=== PATIENT | female | born 2000 | race Caucasian/White ===

== ENCOUNTER 2021-04-28 15:08 | Emergency (ER) | payer OTHER ==
[~2021-04-28] VITALS: Ht 162.6 cm; Wt 83.9 kg
[~2021-04-28 15:08] MED LIST: NOHOMEMEDICATIONS; NORCO 5-325 TA1 EACH PO
[2021-04-28 15:38] LABS: URINE BILIRUBIN NEGATIVE (Negative); URINE BLOOD NEGATIVE (Negative); URINE CLARITY CLEAR; URINE COLOR YELLOW; URINE GLUCOSE-RANDOM NEGATIVE (Negative); URINE KETONES NEGATIVE (Negative); URINE LEUKOCYTES 2+ (Negative); URINE NITRITE NEGATIVE (Negative); URINE PROTEIN NEGATIVE (Negative); URINE UROBILINOGEN 0.2 E.U./dl (0.2-1.0)
[2021-04-28 15:40] LABS: ABSOLUTE EOSINOPHILS 0.1 thou/uL (0.0-0.7); ABSOLUTE LYMPHOCYTES 1.9 thou/uL (0.8-5.3); ABSOLUTE MONOCYTES 0.4 thou/uL (0.0-1.2); ABSOLUTE NEUTROPHILS 3.9 thou/uL (1.6-8.1); BASOPHILS 0.5 %; HEMATOCRIT 39.3 % (37.0-47.0); HEMOGLOBIN 12.8 gm/dL (12.0-15.0); LYMPHOCYTES 30.2 %; MCH 28.8 pg (26.0-34.0); MCHC 32.7 g/dL (28.0-37.0); MCV 88.2 fL (80.0-100.0); MPV 8.7 fl. (7.2-11.1); NUCLEATED RBCS 0 /100WBC; PLATELET COUNT* 255 thou/uL (150-400); POLYS 62.3 %; RBC 4.45 mil/uL (4.20-5.00); RDW-CV 13.5 % (10.5-14.5); WBC 6.3 thou/uL (4.0-11.0)
[2021-04-28 15:45] LABS: MUCUS None Seen strn/LPF (None Seen); SQUAMOUS >10 Many /LPF (0-3)
[2021-04-28 15:46] LABS: CASTS None Seen /LPF (None Seen)
[2021-04-28 15:47] LABS: CRYSTALS None Seen /LPF (None Seen); URINE RBC 0-2 Rare /HPF (0-2); URINE WBC 0-5 Rare /HPF (0-5)
[2021-04-28 15:48] LABS: CREATININE 0.7 mg/dL (0.6-1.3); POTASSIUM 3.8 mmol/L (3.5-5.1)
[2021-04-28 15:56] LABS: ALBUMIN 3.8 g/dL (3.4-5.0); TOTAL BILIRUBIN 0.4 mg/dL (<0.1-1.0); TOTAL PROTEIN 7.8 g/dL (6.4-8.2)
--- NOTE | 2021-04-28 16:06 | EKG ---
[place] [address] ELECTROCARDIOGRAM REPORT Name: JERMAIN JACKMAN Room: [facility].#: [id number] Admission: Attend Phys: Discharge: Date of : 89 Date of Service: 04/28/21 1534 Report #: [id number] THIS REPORT FOR: //name// [facility] ED Test Date: 2021-04-28 Test Time: 15:34:25 Pat Name: JERMAIN JACKMAN Department: Room: Gender: F Acid Tender: GENOVEVA : 2000 Requested By: Travis Garcia Order Number: [id number] MD: Fracisco Finnegan Measurements Intervals [place] Rate: 98 P: 70 [place]: 168 QRS: 56 QRSD: 94 T: 38 QT: 350 QTc: 447 Interpretive Statements Sinus rhythm Probable left atrial enlargement No previous ECG available for comparison Electronically Signed On 04-28-2021 16:06:37 [employer] by Fracisco Finnegan [email or web address] <ELECTRONICALLY SIGNED> By: Fracisco Finnegan MD, [facility] 04/28/21 1606 1534 1534 Fracisco Finnegan MD, FACC /EPI
[2021-04-28] MEDS ORDERED: CEPHALEXIN500 MG PO (16:25)
[2021-04-28 16:48] VITALS: BP 158/84
== END 2021-04-28 16:48 | disposition home or self-care (01) ==
LOC: M.ERS 15:08
PROVIDERS: Physician Assistant
DX: N39.0 Urinary tract infection, site not specified (principal); Z20.822 Contact with and (suspected) exposure to COVID-19; R06.02 Shortness of breath; R55 Syncope and collapse; Z79.899 Other long term (current) drug therapy